=== PATIENT | female | born 1955 | race African-American/Black ===

== ENCOUNTER 2017-05-04 07:52 | Emergency (ER) | payer OTHER ==
[~2017-05-04] VITALS: Ht 165.1 cm; Wt 73.0 kg
[~2017-05-04 07:52] MED LIST: ALBU18HF2 IH; AMOX500T2; D-ME473S8; LORA-986; TYLENOL
[2017-05-04 10:15] VITALS: BP 120/86
== END 2017-05-04 10:18 | disposition home or self-care (01) ==
LOC: ER 08:41
DX: R05 Cough (principal); J45.909 Unspecified asthma, uncomplicated; I10 Essential (primary) hypertension; F17.200 Nicotine dependence, unspecified, uncomplicated
CPT/HCPCS: 71020; 99284; Z7610

== ENCOUNTER 2017-07-05 03:25 | Emergency (ER) | payer OTHER ==
[~2017-07-05] VITALS: Ht 165.1 cm; Wt 68.0 kg
[2017-07-05] MEDS ORDERED: KETOROLAC 30MG/ML VIAL IV STA (03:40)
[2017-07-05] MEDS ORDERED: ONDANSETRON HCL 4MG/2ML VIAL IV STA (03:40)
[2017-07-05] MEDS ORDERED: SODIUM CHLORIDE 0.9% 1,000 ML IV ONE (03:40)
[2017-07-05 04:38] LABS: BASOPHILS % 0.6 % (0.0-2.0); EOSINOPHILS % 0.2 % (0.0-5.0); HEMATOCRIT. 46.3 % (36.0-48.0); HEMOGLOBIN. 15.6 g/dL (12.0-16.0); LYMPHOCYTES % 16.5 % (20.0-50.0); MEAN CORPUSCULAR HEMOGLOBIN 32.7 pg (28.0-32.0); MEAN CORPUSCULAR VOLUME 96.8 fL (81.0-99.0); MONOCYTES % 9.1 % (2.0-8.0); NEUTROPHILS % 73.6 % (40.0-76.0); PLATELET 302 x1000/uL (130-400); RED BLOOD CELL COUNT 4.78 mill/uL (4.2-5.4)
[2017-07-05 04:47] LABS: PROTHROMBIN TIME 10.8 sec (9.4-11.6)
[2017-07-05 05:27] LABS: CARBON DIOXIDE 29 mEq/L (21-32); CHLORIDE 105 mEq/L (98-107)
[2017-07-05] MEDS ORDERED: POTASSIUM CHLORIDE 20MEQ TABLET SR PO ONE (05:45)
[2017-07-05] MEDS ORDERED: ACETAMINOPHEN WITH CODEINE 300/30MG TABLET PO ONE (06:15)
[2017-07-05 06:46] VITALS: BP 161/98
== END 2017-07-05 07:28 | disposition home or self-care (01) ==
LOC: ER 03:32
DX: E87.6 Hypokalemia (principal); R10.33 Periumbilical pain; J45.909 Unspecified asthma, uncomplicated; I10 Essential (primary) hypertension; Z88.0 Allergy status to penicillin
CPT/HCPCS: 36415; 74176; 80048; 83690; 85025; 85610; 96361; 96374; 96375; 99285; J1885; J2405; J7030; Z7610

== ENCOUNTER 2018-09-02 22:13 | Emergency (ER) | payer OTHER ==
[~2018-09-02] VITALS: Ht 165.1 cm; Wt 70.0 kg
[~2018-09-02 22:13] MED LIST changes: +ACET-2178 PO; +ACET12.53 PO; -AMOX500T2; +AMOX500T2 PO; -D-ME473S8; +D-ME473S8 PO; +LORA-1083 PO; -LORA-986; +S350 PO; -TYLENOL
[2018-09-02] MEDS ORDERED: IPRATROPIUM BROMIDE (0.02%) 0.5MG/2.5ML NEB HHN STA (23:11)
[2018-09-02] MEDS ORDERED: METHYLPREDNISOLONE SOD SUCC 125 MG/2 ML VIAL IV STA (23:11)
[2018-09-02] MEDS ORDERED: ALBUTEROL (0.083%) 2.5MG/3ML NEB HHN STA (23:11)
[2018-09-03 00:17] LABS: BASOPHILS % 0.7 % (0.0-2.0); EOSINOPHILS % 2.4 % (0.0-5.0); HEMATOCRIT. 39.8 % (36.0-48.0); HEMOGLOBIN. 13.6 g/dL (12.0-16.0); LYMPHOCYTES % 39.9 % (20.0-50.0); MEAN CORPUSCULAR HEMOGLOBIN 33.7 pg (28.0-32.0); MEAN PLATELET VOLUME 7.1 fl (7.4-10.4); MONOCYTES % 9.9 % (2.0-8.0); NEUTROPHILS % 47.1 % (40.0-76.0); PLATELET 242 x1000/uL (130-400); RED BLOOD CELL COUNT 4.02 mill/uL (4.2-5.4); RED CELL DISTRIBUTION WIDTH 12.6 % (11.6-14.6)
[2018-09-03 00:25] LABS: CHLORIDE 105 mEq/L (98-107)
[2018-09-03] MEDS ORDERED: IBUPROFEN 600MG TABLET PO ONE (00:45)
[2018-09-03] MEDS ORDERED: POTASSIUM CHLORIDE 20MEQ TABLET SR PO ONE (02:30)
[2018-09-03 02:40] VITALS: BP 120/84
== END 2018-09-03 03:21 | disposition home or self-care (01) ==
LOC: ER 22:13
DX: J45.31 Mild persistent asthma with (acute) exacerbation (principal); E87.6 Hypokalemia; F17.210 Nicotine dependence, cigarettes, uncomplicated; I10 Essential (primary) hypertension; Z79.899 Other long term (current) drug therapy; Z79.51 Long term (current) use of inhaled steroids
CPT/HCPCS: 36415; 71045; 80053; 85025; 93005; 94644; 96374; 99285; J2930; J7611

== ENCOUNTER 2018-11-16 11:47 | Emergency (ER) | payer OTHER ==
[~2018-11-16] VITALS: Ht 165.1 cm; Wt 73.0 kg
[2018-11-16 14:45] LABS: CLARITY URINE CLOUDY (CLEAR); COLOR URINE YELLOW (YELLOW); KETONES URINE TRACE (NEGATIVE); LEUKOCYTE ESTERASE URINE 3+ (NEGATIVE); NITRITE URINE NEGATIVE (NEGATIVE); OCCULT BLOOD URINE TRACE (NEGATIVE); PROTEIN URINE NEGATIVE (NEGATIVE); SPECIFIC GRAVITY URINE 1.029 (1.005-1.030); UROBILINOGEN URINE 0.2 E.U./dL (0.2-1.0)
[2018-11-16 15:52] VITALS: BP 119/81
== END 2018-11-16 15:49 | disposition home or self-care (01) ==
LOC: ER 13:32
DX: N39.0 Urinary tract infection, site not specified (principal); A59.9 Trichomoniasis, unspecified; J45.909 Unspecified asthma, uncomplicated; Z88.0 Allergy status to penicillin; Z79.899 Other long term (current) drug therapy
CPT/HCPCS: 99283

== ENCOUNTER 2019-02-21 11:18 | Emergency (ER) | payer OTHER ==
[~2019-02-21] VITALS: Ht 165.1 cm; Wt 72.0 kg
[2019-02-21] MEDS ORDERED: TETANUS, DIPHTHERIA, PERTUSSIS VAC/PF 0.5ML (>7YR OLD) IM ONE (14:15)
[2019-02-21] MEDS ORDERED: HYDROCODONE/ACETAMINOPHEN 5/325MG TABLET PO ONE (14:15)
[2019-02-21] MEDS ORDERED: SILVER SULFADIAZINE 1% CREAM 25GM TOP ONE (14:15)
[2019-02-21 14:33] VITALS: BP 110/84
== END 2019-02-21 14:47 | disposition home or self-care (01) ==
LOC: ER 11:18
DX: T23.021A Burn of unspecified degree of single right finger (nail) except thumb, initial encounter (principal); T31.0 Burns involving less than 10% of body surface; X19.XXXA Contact with other heat and hot substances, initial encounter; Y93.89 Activity, other specified; Y92.89 Other specified places as the place of occurrence of the external cause; Z88.0 Allergy status to penicillin; Z23 Encounter for immunization
CPT/HCPCS: 16020; 90471; 90715; 99284

== ENCOUNTER 2019-03-04 14:14 | Emergency (ER) | payer OTHER ==
[~2019-03-04] VITALS: Ht 162.6 cm; Wt 69.0 kg
[2019-03-04] MEDS ORDERED: HYDROCODONE/ACETAMINOPHEN 5/325MG TABLET PO ONE (16:15)
[2019-03-04] MEDS ORDERED: BACITRACIN ZINC OINT UDPKT TOP ONE (16:15)
[2019-03-04 16:29] VITALS: BP 109/78
== END 2019-03-04 16:38 | disposition home or self-care (01) ==
LOC: ER 14:14
DX: T23.021D Burn of unspecified degree of single right finger (nail) except thumb, subsequent encounter (principal); T31.0 Burns involving less than 10% of body surface; X58.XXXD Exposure to other specified factors, subsequent encounter; Z79.899 Other long term (current) drug therapy; Z88.0 Allergy status to penicillin
CPT/HCPCS: 99283

== ENCOUNTER 2019-05-20 08:03 | Emergency (ER) | payer OTHER ==
[~2019-05-20] VITALS: Ht 165.1 cm; Wt 71.0 kg
[~2019-05-20 08:03] MED LIST changes: -LORA-1083 PO; +LORA-1118 PO
[2019-05-20] MEDS ORDERED: KETOROLAC 15MG/ML VIAL IV ONE (08:45)
[2019-05-20] MEDS ORDERED: ALBUTEROL (0.083%) 2.5MG/3ML NEB HHN ONE (08:45)
[2019-05-20] MEDS ORDERED: PREDNISONE 20MG TABLET PO ONE (09:00)
[2019-05-20 09:21] LABS: BASOPHILS % 1.1 % (0.0-2.0); EOSINOPHILS % 0.9 % (0.0-5.0); HEMATOCRIT. 40.5 % (36.0-48.0); HEMOGLOBIN. 13.7 g/dL (12.0-16.0); LYMPHOCYTES % 24.3 % (20.0-50.0); MEAN CORPUSCULAR HEMOGLOBIN 33.8 pg (28.0-32.0); MEAN CORPUSCULAR VOLUME 99.7 fL (81.0-99.0); MEAN PLATELET VOLUME 7.3 fl (7.4-10.4); MONOCYTES % 8.7 % (2.0-8.0); PLATELET 245 x1000/uL (130-400); RED BLOOD CELL COUNT 4.06 mill/uL (4.2-5.4); RED CELL DISTRIBUTION WIDTH 12.7 % (11.6-14.6)
[2019-05-20 09:27] LABS: CHLORIDE 110 mEq/L (98-107)
[2019-05-20 09:44] LABS: CLARITY URINE CLEAR (CLEAR); COLOR URINE YELLOW (YELLOW); KETONES URINE NEGATIVE (NEGATIVE); LEUKOCYTE ESTERASE URINE NEGATIVE (NEGATIVE); NITRITE URINE NEGATIVE (NEGATIVE); OCCULT BLOOD URINE NEGATIVE (NEGATIVE); PROTEIN URINE NEGATIVE (NEGATIVE); UROBILINOGEN URINE 0.2 E.U./dL (0.2-1.0)
[2019-05-20 10:00] VITALS: BP 120/76
== END 2019-05-20 10:18 | disposition home or self-care (01) ==
LOC: ER 08:03
DX: R05 Cough (principal); R07.89 Other chest pain; J45.909 Unspecified asthma, uncomplicated; I10 Essential (primary) hypertension; F17.200 Nicotine dependence, unspecified, uncomplicated; Z79.899 Other long term (current) drug therapy; Z88.0 Allergy status to penicillin
CPT/HCPCS: 36415; 71045; 80048; 81003; 85025; 94640; 96374; 99284; J1885; J7512; J7611; Z7610

== ENCOUNTER 2019-06-02 08:17 | Emergency (ER) | payer OTHER ==
[~2019-06-02] VITALS: Ht 170.2 cm; Wt 72.0 kg
[2019-06-02 08:27] VITALS: BP 108/81
== END 2019-06-02 12:11 | disposition home or self-care (01) ==
LOC: ER 08:17
DX: J40 Bronchitis, not specified as acute or chronic (principal); M19.90 Unspecified osteoarthritis, unspecified site; I10 Essential (primary) hypertension; M79.10 Myalgia, unspecified site; Z88.0 Allergy status to penicillin
CPT/HCPCS: 71045; 99283

== ENCOUNTER 2019-11-18 05:04 | Emergency (ER) | payer OTHER ==
[~2019-11-18] VITALS: Ht 165.1 cm; Wt 68.0 kg
[~2019-11-18 05:04] MED LIST changes: -ACET-2178 PO; +CARI-166 PO; -S350 PO; +TOPUD PO
[2019-11-18] MEDS ORDERED: NAPROXEN 250MG TABLET PO SCH (06:45)
[2019-11-18 07:01] VITALS: BP 132/80
== END 2019-11-18 07:03 | disposition home or self-care (01) ==
LOC: ER 05:04
DX: J20.9 Acute bronchitis, unspecified (principal); J45.909 Unspecified asthma, uncomplicated; R03.0 Elevated blood-pressure reading, without diagnosis of hypertension
CPT/HCPCS: 99283

== ENCOUNTER 2021-05-11 11:16 | Emergency (ER) | payer OTHER ==
[~2021-05-11] VITALS: Ht 165.1 cm; Wt 68.0 kg
[~2021-05-11 11:16] MED LIST changes: -CARI-166 PO; +CARI350T28 PO
[2021-05-11] MEDS ORDERED: MORPHINE SULFATE 4 MG/ML CPJ (NOT FOR IM USE) IV ONE (12:00)
[2021-05-11] MEDS ORDERED: ONDANSETRON HCL 4MG/2ML INJ IV ONE (12:00)
[2021-05-11 12:33] LABS: BASOPHILS % 0.7 % (0.0-2.0); EOSINOPHILS % 0.3 % (0.0-5.0); HEMATOCRIT. 48.1 % (36.0-48.0); HEMOGLOBIN. 16.9 g/dL (12.0-16.0); LYMPHOCYTES % 16.7 % (20.0-50.0); MEAN CORPUSCULAR HEMOGLOBIN 35.7 pg (28.0-32.0); MEAN CORPUSCULAR VOLUME 101.7 fL (81.0-99.0); MEAN PLATELET VOLUME 7.4 fl (7.4-10.4); MONOCYTES % 6.2 % (2.0-8.0); NEUTROPHILS % 76.1 % (40.0-76.0); PLATELET 326 x1000/uL (130-400); RED BLOOD CELL COUNT 4.73 mill/uL (4.2-5.4); RED CELL DISTRIBUTION WIDTH 13.2 % (11.6-14.6)
[2021-05-11 12:40] LABS: CHLORIDE 109 mEq/L (98-107)
[2021-05-11] MEDS ORDERED: DICY10CA88 MT (14:41)
[2021-05-11] MEDS ORDERED: ONDA4TAB5 MT (14:41)
[2021-05-11] MEDS ORDERED: DICYCLOMINE HCL 10MG CAPSULE PO ONE (14:45)
[2021-05-11 14:59] LABS: PROTHROMBIN TIME 10.3 sec (9.6-11.0)
[2021-05-11 15:12] VITALS: BP 155/91
== END 2021-05-11 15:17 | disposition home or self-care (01) ==
LOC: ER 11:40
DX: R10.31 Right lower quadrant pain (principal); R11.2 Nausea with vomiting, unspecified; R19.7 Diarrhea, unspecified; F17.290 Nicotine dependence, other tobacco product, uncomplicated; F12.10 Cannabis abuse, uncomplicated; I10 Essential (primary) hypertension; Z88.0 Allergy status to penicillin; Z79.899 Other long term (current) drug therapy; Z98.890 Other specified postprocedural states
CPT/HCPCS: 36415; 74176; 80053; 83690; 85025; 85610; 93005; 96374; 96375; 99285; 99406; J2270; J2405

== ENCOUNTER 2021-05-12 07:34 | Emergency (ER) | payer OTHER ==
[~2021-05-12] VITALS: Ht 170.2 cm; Wt 59.0 kg
[~2021-05-12 07:34] MED LIST changes: +DICY10CA88 MT; +ONDA4TAB5 MT
[2021-05-12] MEDS ORDERED: MORPHINE SULFATE 4 MG/ML CPJ (NOT FOR IM USE) IV STA (08:01)
[2021-05-12] MEDS ORDERED: ONDANSETRON HCL 4MG/2ML INJ IV STA (08:01)
[2021-05-12] MEDS ORDERED: SODIUM CHLORIDE 0.9% 1,000 ML IV ONE (08:15)
[2021-05-12 08:29] LABS: CHLORIDE 107 mEq/L (98-107)
[2021-05-12 08:35] LABS: PROTHROMBIN TIME 10.6 sec (9.6-11.0)
[2021-05-12 08:50] LABS: CLARITY URINE CLEAR (CLEAR); COLOR URINE DARK YELLOW (YELLOW); KETONES URINE 1+ (NEGATIVE); LEUKOCYTE ESTERASE URINE NEGATIVE (NEGATIVE); NITRITE URINE NEGATIVE (NEGATIVE); OCCULT BLOOD URINE 2+ (NEGATIVE); PH URINE 6.5 (4.5-8.0); PROTEIN URINE 3+ (NEGATIVE); SPECIFIC GRAVITY URINE 1.028 (1.005-1.030); UROBILINOGEN URINE 0.2 E.U./dL (0.2-1.0)
[2021-05-12 08:53] LABS: BASOPHILS % 0.4 % (0.0-2.0); EOSINOPHILS % 0.1 % (0.0-5.0); HEMATOCRIT. 47.7 % (36.0-48.0); HEMOGLOBIN. 16.4 g/dL (12.0-16.0); LYMPHOCYTES % 10.5 % (20.0-50.0); MEAN CORPUSCULAR HEMOGLOBIN 34.8 pg (28.0-32.0); MEAN PLATELET VOLUME 7.4 fl (7.4-10.4); MONOCYTES % 8.3 % (2.0-8.0); NEUTROPHILS % 80.7 % (40.0-76.0); PLATELET 322 x1000/uL (130-400); RED BLOOD CELL COUNT 4.72 mill/uL (4.2-5.4); RED CELL DISTRIBUTION WIDTH 12.7 % (11.6-14.6)
[2021-05-12] MEDS ORDERED: ONDANSETRON HCL 4MG/2ML INJ IV ONE (10:45)
[2021-05-12] MEDS ORDERED: MORPHINE SULFATE 4 MG/ML CPJ (NOT FOR IM USE) IV ONE (10:45)
[2021-05-12 12:30] VITALS: BP 103/77
== END 2021-05-12 13:18 | disposition short-term general hospital (02) ==
LOC: ER 07:57
DX: R11.2 Nausea with vomiting, unspecified (principal); R10.2 Pelvic and perineal pain; I10 Essential (primary) hypertension; J45.909 Unspecified asthma, uncomplicated; Z87.01 Personal history of pneumonia (recurrent); F17.210 Nicotine dependence, cigarettes, uncomplicated; Z71.6 Tobacco abuse counseling; F12.90 Cannabis use, unspecified, uncomplicated
CPT/HCPCS: 36415; 74018; 80053; 81003; 83690; 84484; 85025; 85610; 93005; 96374; 96375; 96376; 99285; 99406; J2270; J2405; J7030; Z7610

== ENCOUNTER 2021-08-08 07:22 | Emergency (ER) | payer OTHER ==
[~2021-08-08] VITALS: Ht 165.1 cm; Wt 67.0 kg
[~2021-08-08 07:22] MED LIST changes: -ACET12.53 PO; +ACET12.55 PO
[2021-08-08] MEDS ORDERED: IPRATROPIUM BROMIDE (0.02%) 0.5MG/2.5ML NEB HHN STA (08:11)
[2021-08-08] MEDS ORDERED: ALBUTEROL (0.083%) 2.5MG/3ML NEB HHN STA (08:11)
[2021-08-08 08:49] LABS: BASOPHILS % 0.6 % (0.0-2.0); CHLORIDE 110 mEq/L (98-107); EOSINOPHILS % 1.6 % (0.0-5.0); HEMATOCRIT. 42.6 % (36.0-48.0); HEMOGLOBIN. 14.5 g/dL (12.0-16.0); LYMPHOCYTES % 27.5 % (20.0-50.0); MEAN CORPUSCULAR HEMOGLOBIN 34.4 pg (28.0-32.0); MEAN CORPUSCULAR VOLUME 101.4 fL (81.0-99.0); MEAN PLATELET VOLUME 7.3 fl (7.4-10.4); MONOCYTES % 10.3 % (2.0-8.0); PLATELET 252 x1000/uL (130-400); RED CELL DISTRIBUTION WIDTH 13.1 % (11.6-14.6)
[2021-08-08] MEDS ORDERED: ALBUL MT (11:13)
[2021-08-08] MEDS ORDERED: AZIT500T8 MT (11:13)
[2021-08-08] MEDS ORDERED: P50 MT (11:14)
[2021-08-08 11:28] VITALS: BP 145/91
== END 2021-08-08 11:30 | disposition home or self-care (01) ==
LOC: ER 07:22
DX: J44.1 Chronic obstructive pulmonary disease with (acute) exacerbation (principal); J45.909 Unspecified asthma, uncomplicated; I10 Essential (primary) hypertension; Z87.01 Personal history of pneumonia (recurrent); F12.10 Cannabis abuse, uncomplicated; Z79.899 Other long term (current) drug therapy; Z88.0 Allergy status to penicillin
CPT/HCPCS: 36415; 71045; 80053; 83880; 84484; 85025; 94640; 99284; Z7610

== ENCOUNTER 2022-03-12 07:34 | Emergency (ER) | payer OTHER ==
[~2022-03-12] VITALS: Ht 165.1 cm; Wt 68.0 kg
[~2022-03-12 07:34] MED LIST changes: +ALBUL MT; +AZIT500T8 MT; +P50 MT
[2022-03-12] MEDS ORDERED: ACETAMINOPHEN 325MG TABLET PO ONE (08:30)
[2022-03-12] MEDS ORDERED: HYDR-4001 MT (09:40)
[2022-03-12 09:54] VITALS: BP 157/86
== END 2022-03-12 09:57 | disposition home or self-care (01) ==
LOC: ER 08:02
DX: S86.811A Strain of other muscle(s) and tendon(s) at lower leg level, right leg, initial encounter (principal); I10 Essential (primary) hypertension; M17.0 Bilateral primary osteoarthritis of knee; W01.0XXA Fall on same level from slipping, tripping and stumbling without subsequent striking against object, initial encounter; Y93.01 Activity, walking, marching and hiking; Y92.89 Other specified places as the place of occurrence of the external cause; M25.462 Effusion, left knee; M25.461 Effusion, right knee
CPT/HCPCS: 73562; 99283

== ENCOUNTER 2022-03-18 05:34 | Emergency (ER) | payer OTHER ==
[~2022-03-18] VITALS: Ht 165.1 cm; Wt 68.0 kg
[~2022-03-18 05:34] MED LIST changes: +HYDR-4001 MT
[2022-03-18] MEDS ORDERED: ACETAMINOPHEN 325MG TABLET PO ONE (06:00)
[2022-03-18] MEDS ORDERED: IBUPROFEN 400MG TABLET PO ONE (06:00)
[2022-03-18 06:38] VITALS: BP 152/86
== END 2022-03-18 06:50 | disposition home or self-care (01) ==
LOC: ER 05:34
DX: M17.0 Bilateral primary osteoarthritis of knee (principal); F12.10 Cannabis abuse, uncomplicated; Z79.899 Other long term (current) drug therapy; I10 Essential (primary) hypertension; Z88.0 Allergy status to penicillin; J45.909 Unspecified asthma, uncomplicated
CPT/HCPCS: 99283

== ENCOUNTER 2022-04-23 14:48 | Emergency (ER) | payer OTHER ==
[~2022-04-23] VITALS: Ht 165.1 cm; Wt 67.0 kg
[2022-04-23 15:02] VITALS: BP 103/49
[2022-04-23] MEDS ORDERED: LIDOCAINE 5% PATCH TOP SCH (16:45)
[2022-04-23] MEDS ORDERED: HYDROCODONE/ACETAMINOPHEN 5/325MG TABLET PO ONE (16:45)
[2022-04-23] MEDS ORDERED: LIDO1ADH23 TP (17:39)
[2022-04-23] MEDS ORDERED: ACET-2708 MT (17:39)
== END 2022-04-23 18:13 | disposition home or self-care (01) ==
LOC: ER 14:48
DX: R07.81 Pleurodynia (principal)
CPT/HCPCS: 71101; 99283

== ENCOUNTER 2022-08-18 21:14 | Emergency (ER) | payer OTHER ==
[~2022-08-18] VITALS: Ht 165.1 cm; Wt 78.0 kg
[~2022-08-18 21:14] MED LIST changes: +ACET-2708 MT; +LIDO1ADH23 TP
[2022-08-19] MEDS: HYDROCODONE/ACETAMINOPHEN 5/325MG TABLET PO ONE (01:30)
[2022-08-19] MEDS ORDERED: HYDR-4001 MT (01:32)
[2022-08-19 01:51] VITALS: BP 127/78
== END 2022-08-19 01:54 | disposition home or self-care (01) ==
LOC: ER 21:14
DX: M25.562 Pain in left knee (principal); M25.561 Pain in right knee; J45.909 Unspecified asthma, uncomplicated; I10 Essential (primary) hypertension; Z87.01 Personal history of pneumonia (recurrent); F12.10 Cannabis abuse, uncomplicated
CPT/HCPCS: 99283

== ENCOUNTER 2022-09-08 07:53 | Emergency (ER) | payer OTHER ==
[~2022-09-08] VITALS: Ht 165.1 cm; Wt 77.0 kg
[2022-09-08 08:12] VITALS: BP 106/77
[2022-09-08] MEDS ORDERED: ACETAMINOPHEN 325MG TABLET PO ONE (08:30)
[2022-09-08] MEDS ORDERED: LIDOCAINE HCL 1% 20ML VIAL (Pyxis) INJ INFIL ONE (08:30)
[2022-09-08] MEDS ORDERED: LIDOCAINE HCL 1% 10 MG/ML 10ML VIAL INJ NR (09:30)
[2022-09-08] MEDS ORDERED: HYDROCODONE/ACETAMINOPHEN 5/325MG TABLET PO ONE (09:45)
[2022-09-08] MEDS ORDERED: HYDR-4001 MT (10:27)
== END 2022-09-08 11:20 | disposition home or self-care (01) ==
LOC: ER 07:53
DX: M25.461 Effusion, right knee (principal); F12.10 Cannabis abuse, uncomplicated; I10 Essential (primary) hypertension; Z13.9 Encounter for screening, unspecified; Z88.0 Allergy status to penicillin; Z79.899 Other long term (current) drug therapy; J45.909 Unspecified asthma, uncomplicated; Z98.890 Other specified postprocedural states
CPT/HCPCS: 20610; 73560; 87070; 87205; 89050; 89060; 99285; J3490

== ENCOUNTER 2022-09-29 07:36 | Emergency (ER) | payer OTHER ==
[~2022-09-29] VITALS: Ht 160 cm; Wt 68.0 kg
[2022-09-29 08:06] VITALS: BP 111/78
== END 2022-09-29 09:10 | disposition home or self-care (01) ==
LOC: ER 07:36
DX: M25.562 Pain in left knee (principal); M25.561 Pain in right knee; M79.89 Other specified soft tissue disorders
CPT/HCPCS: 99281

== ENCOUNTER 2023-03-11 05:00 | Emergency (ER) | payer OTHER ==
[~2023-03-11] VITALS: Ht 167.6 cm; Wt 61.0 kg
[2023-03-11] MEDS ORDERED: TRAMADOL HCL/ACETAMINOPHEN 37.5/325MG TABLET PO ONE (06:00)
[2023-03-11] MEDS ORDERED: ONDANSETRON 4MG ODT PO ONE (06:00)
[2023-03-11 06:38] LABS: BASOPHILS % 0.4 % (0.0-2.0); EOSINOPHILS % 0.5 % (0.0-5.0); HEMATOCRIT. 41.9 % (36.0-48.0); HEMOGLOBIN. 14.5 g/dL (12.0-16.0); LYMPHOCYTES % 16.8 % (20.0-50.0); MEAN CORPUSCULAR HEMOGLOBIN 35.9 pg (28.0-32.0); MEAN CORPUSCULAR VOLUME 103.8 fL (81.0-99.0); MONOCYTES % 14.1 % (2.0-8.0); NEUTROPHILS % 68.2 % (40.0-76.0); PLATELET 223 x1000/uL (130-400); RED BLOOD CELL COUNT 4.03 mill/uL (4.2-5.4); RED CELL DISTRIBUTION WIDTH 12.9 % (11.6-14.6)
[2023-03-11 06:42] LABS: PROTHROMBIN TIME 10.6 sec (9.6-11.0)
[2023-03-11] MEDS ORDERED: KETOROLAC 30MG/ML VIAL IV ONE (06:45)
[2023-03-11 06:47] LABS: CHLORIDE 109 mEq/L (98-107)
[2023-03-11] MEDS ORDERED: CIPR500T5 MT (09:08)
[2023-03-11] MEDS ORDERED: MELO-104 MT (09:08)
[2023-03-11 09:31] VITALS: BP 148/88
== END 2023-03-11 09:28 | disposition home or self-care (01) ==
LOC: ER 05:00
DX: A09 Infectious gastroenteritis and colitis, unspecified (principal); E87.6 Hypokalemia; M17.0 Bilateral primary osteoarthritis of knee; I10 Essential (primary) hypertension; J45.909 Unspecified asthma, uncomplicated; Z88.0 Allergy status to penicillin; Z79.899 Other long term (current) drug therapy; Z98.890 Other specified postprocedural states
CPT/HCPCS: 36415; 76705; 80053; 83690; 85025; 85610; 96374; 99285; J1885; Q0162; Z7610

== ENCOUNTER 2023-03-29 19:15 | Emergency (ER) | payer OTHER ==
[~2023-03-29] VITALS: Ht 165.1 cm; Wt 68.0 kg
[~2023-03-29 19:15] MED LIST changes: +ALBU2SYR23 MT; -ALBUL MT; +CIPR500T5 MT; +MELO-104 MT
[2023-03-29] MEDS ORDERED: KETOROLAC 60MG/2ML VIAL IM ONE (20:45)
[2023-03-29 21:08] VITALS: BP 151/91
[2023-03-29] MEDS ORDERED: IBUP-2029 MT (21:54)
== END 2023-03-29 23:00 | disposition home or self-care (01) ==
LOC: ER 19:15
DX: M25.531 Pain in right wrist (principal); I10 Essential (primary) hypertension; Z88.0 Allergy status to penicillin
CPT/HCPCS: 73130; 96372; 99283; J1885; Z7610

== ENCOUNTER 2023-04-02 14:21 | Emergency (ER) | payer OTHER ==
[~2023-04-02] VITALS: Ht 165.1 cm; Wt 68.0 kg
[~2023-04-02 14:21] MED LIST changes: +IBUP-2029 MT
[2023-04-02 14:32] VITALS: BP 144/125
[2023-04-02] MEDS ORDERED: IBUP-2029 MT (18:22)
[2023-04-02] MEDS ORDERED: IBUPROFEN 600MG TABLET PO ONE (18:30)
== END 2023-04-02 18:46 | disposition home or self-care (01) ==
LOC: ER 16:00
DX: S60.211A Contusion of right wrist, initial encounter (principal); M19.031 Primary osteoarthritis, right wrist; I10 Essential (primary) hypertension; Z88.0 Allergy status to penicillin; X58.XXXA Exposure to other specified factors, initial encounter; Y93.89 Activity, other specified; Y92.89 Other specified places as the place of occurrence of the external cause; Y99.8 Other external cause status
CPT/HCPCS: 99282

== ENCOUNTER 2023-04-14 12:44 | Emergency (ER) | payer OTHER ==
[~2023-04-14] VITALS: Ht 167.6 cm; Wt 59.0 kg
[2023-04-14 12:51] VITALS: BP 128/83
[2023-04-14] MEDS ORDERED: AMLO2.5T45 MT (15:24)
[2023-04-14] MEDS ORDERED: AMLODIPINE 2.5MG TABLET PO ONE (15:30)
== END 2023-04-14 15:54 | disposition home or self-care (01) ==
LOC: ER 12:52
DX: Z76.0 Encounter for issue of repeat prescription (principal); Z88.0 Allergy status to penicillin; Z79.899 Other long term (current) drug therapy
CPT/HCPCS: 99281

== ENCOUNTER 2023-09-25 06:35 | Emergency (ER) | payer OTHER ==
[~2023-09-25] VITALS: Ht 165.1 cm; Wt 54.0 kg
[~2023-09-25 06:35] MED LIST changes: +AMLO2.5T45 MT; +DICY-18 MT; -DICY10CA88 MT
[2023-09-25 06:47] VITALS: BP 159/90; RESP 16; TEMP 98.1; O2SAT 99
[2023-09-25 07:14] VITALS: PULSE 82
[2023-09-25 08:07] LABS: CLARITY URINE CLEAR (CLEAR); COLOR URINE YELLOW (YELLOW); GLUCOSE URINE NEGATIVE (NEGATIVE); KETONES URINE TRACE (NEGATIVE); LEUKOCYTE ESTERASE URINE NEGATIVE (NEGATIVE); NITRITE URINE NEGATIVE (NEGATIVE); OCCULT BLOOD URINE 2+ (NEGATIVE); PROTEIN URINE NEGATIVE (NEGATIVE); SPECIFIC GRAVITY URINE 1.012 (1.005-1.030); UROBILINOGEN URINE 0.2 E.U./dL (0.2-1.0)
[2023-09-25 08:28] LABS: SQUAMOUS EPITHELIAL CELL URINE FEW /lpf (RARE/1+)
[2023-09-25 08:29] LABS: BACTERIA URINE NONE SEEN; RBC URINE 0-2 /hpf (0-2); WBC URINE 0-2 /hpf (0-2); YEAST URINE NONE SEEN
[2023-09-25] MEDS ORDERED: MAGNESIUM/ALUMINUM HYDROXIDE/SIMETHICONE 30ML UDC PO ONE (10:00)
[2023-09-25] MEDS ORDERED: FAMOTIDINE 20MG TABLET PO ONE (10:00)
[2023-09-25] MEDS ORDERED: ONDANSETRON 4MG ODT PO ONE (10:00)
[2023-09-25 10:08] LABS: BASOPHILS % 0.8 % (0.0-2.0); DIFFERENTIAL COMMENT 0; EOSINOPHILS % 0.5 % (0.0-5.0); HEMATOCRIT. 43.6 % (36.0-48.0); HEMOGLOBIN. 14.8 g/dL (12.0-16.0); LYMPHOCYTES % 24.3 % (20.0-50.0); MEAN CORPUSCULAR HGB CONC 33.9 g/dL (31.0-37.0); MEAN CORPUSCULAR VOLUME 103.3 fL (81.0-99.0); NEUTROPHILS % 65.4 % (40.0-76.0); PLATELET 208 x1000/uL (130-400); RED BLOOD CELL COUNT 4.22 mill/uL (4.2-5.4); RED CELL DISTRIBUTION WIDTH 13.9 % (11.6-14.6); WHITE BLOOD COUNT 5.1 x1000/uL (4.5-11.0)
[2023-09-25 10:20] LABS: CHLORIDE 108 mEq/L (98-107); INDEX HEMOLYSI 1 (1-3); INDEX ICTERIC 1 (1-4); INDEX LIPEMIC 1 (1-3); POTASSIUM 3.4 mEq/L (3.5-5.1); SODIUM 138 mEq/L (136-145)
[2023-09-25 10:31] LABS: ALANINE AMINOTRANSFERASE 25 IU/L (13-61); ALBUMIN 3.6 g/dL (3.4-5.0); ASPARTATE AMINOTRANSFERASE 19 IU/L (15-37); CALCIUM 8.5 mg/dL (8.5-10.1); CARBON DIOXIDE 25 mEq/L (21-32); CREATININE 0.5 mg/dL (0.6-1.3); GLUCOSE 83 mg/dL (70-105); PROTEIN TOTAL 6.9 g/dL (6.0-8.3); TROPONIN I HIGH SENSITIVITY 8 ng/L (<54); UREA NITROGEN BLOOD 11 mg/dL (7-21)
[2023-09-25] MEDS ORDERED: FAMO-135 MT (11:24)
== END 2023-09-25 11:54 | disposition home or self-care (01) ==
LOC: ER 06:35
DX: K29.70 Gastritis, unspecified, without bleeding (principal); I10 Essential (primary) hypertension; Z79.899 Other long term (current) drug therapy; Z88.0 Allergy status to penicillin; Z88.8 Allergy status to other drugs, medicaments and biological substances
CPT/HCPCS: 99284; 80053; 81003; 83690; 85025; 84484; 36415; 93005; Q0162

== ENCOUNTER 2023-11-10 12:26 | Emergency (ER) | payer OTHER ==
[~2023-11-10] VITALS: Ht 162.6 cm; Wt 68.0 kg
[~2023-11-10 12:26] MED LIST changes: +FAMO-135 MT
[2023-11-10 12:39] VITALS: BP 125/86; PULSE 91; RESP 18; TEMP 98.6; O2SAT 97
[2023-11-10] MEDS ORDERED: ACETAMINOPHEN 325MG TABLET PO STA (13:22)
[2023-11-10] MEDS ORDERED: CYCL10TA21 PO (15:58)
[2023-11-10] MEDS ORDERED: NAPR-681 MT (15:59)
== END 2023-11-10 16:16 | disposition home or self-care (01) ==
LOC: ER 12:26
DX: S13.4XXA Sprain of ligaments of cervical spine, initial encounter (principal); M25.512 Pain in left shoulder; M54.50 Low back pain, unspecified; I10 Essential (primary) hypertension; Z88.0 Allergy status to penicillin; Z98.890 Other specified postprocedural states; Z79.899 Other long term (current) drug therapy; V43.52XA Car driver injured in collision with other type car in traffic accident, initial encounter; Y93.89 Activity, other specified; Y92.89 Other specified places as the place of occurrence of the external cause; Y99.8 Other external cause status
CPT/HCPCS: 71045; 99284

== ENCOUNTER 2024-01-05 01:48 | Emergency (ER) | payer OTHER ==
[~2024-01-05] VITALS: Ht 160 cm; Wt 53.0 kg
[~2024-01-05 01:48] MED LIST changes: +CYCL10TA21 PO; +NAPR-681 MT
[2024-01-05 01:51] VITALS: O2SAT 98
[2024-01-05 02:16] LABS: HEMATOCRIT. 44.7 % (36.0-48.0); HEMOGLOBIN. 15.2 g/dL (12.0-16.0); MEAN CORPUSCULAR HEMOGLOBIN 35.3 pg (28.0-32.0); MEAN CORPUSCULAR HGB CONC 34.1 g/dL (31.0-37.0); MEAN CORPUSCULAR VOLUME 103.6 fL (81.0-99.0); MEAN PLATELET VOLUME 7.1 fl (7.4-10.4); PLATELET 202 x1000/uL (130-400); RED BLOOD CELL COUNT 4.31 mill/uL (4.2-5.4); WHITE BLOOD COUNT 3.7 x1000/uL (4.5-11.0)
[2024-01-05 02:33] LABS: DIFFERENTIAL COMMENT 1
[2024-01-05 02:34] LABS: ALANINE AMINOTRANSFERASE 27 IU/L (10-49); ALBUMIN 4.2 g/dL (3.2-4.8); ASPARTATE AMINOTRANSFERASE 31 IU/L (<34); BILIRUBIN TOTAL 0.7 mg/dL (0.1-1.0); CALCIUM 9.1 mg/dL (8.7-10.4); CARBON DIOXIDE 28 mEq/L (21-32); CHLORIDE 105 mEq/L (98-107); CREATININE 0.7 mg/dL (0.6-1.0); GLUCOSE 107 mg/dL (70-105); PROTEIN TOTAL 6.8 g/dL (6.0-8.3); SODIUM 142 mEq/L (136-145); TROPONIN I HIGH SENSITIVITY 12 ng/L (3.0-34); UREA NITROGEN BLOOD 13 mg/dL (9-23)
[2024-01-05 02:37] LABS: ETHANOL BLOOD < 10 mg/dL (<10)
[2024-01-05 02:56] LABS: PLATELET ESTIMATE NORMAL
[2024-01-05] MEDS: POTASSIUM CHLORIDE 20MEQ/PACKET PO NR (05:00)
[2024-01-05] MEDS: ACETAMINOPHEN 325MG TABLET PO NR (05:00)
[2024-01-05 05:22] LABS: TROPONIN I HIGH SENSITIVITY 9 ng/L (3.0-34)
[2024-01-05 07:52] LABS: CLARITY URINE CLEAR (CLEAR); COLOR URINE YELLOW (YELLOW); GLUCOSE URINE NEGATIVE (NEGATIVE); KETONES URINE TRACE (NEGATIVE); LEUKOCYTE ESTERASE URINE NEGATIVE (NEGATIVE); NITRITE URINE NEGATIVE (NEGATIVE); OCCULT BLOOD URINE 1+ (NEGATIVE); PH URINE 6.5 (4.5-8.0); PROTEIN URINE NEGATIVE (NEGATIVE); SPECIFIC GRAVITY URINE 1.023 (1.005-1.030)
[2024-01-05 07:55] VITALS: BP 134/85; PULSE 87; RESP 16; TEMP 98
[2024-01-05 08:07] LABS: WBC URINE 0-2 /hpf (0-2)
[2024-01-05 08:08] LABS: BACTERIA URINE TRACE; SQUAMOUS EPITHELIAL CELL URINE 2+ /lpf (RARE/1+)
[2024-01-05 08:19] LABS: *AMPHETAMINES SCREEN URINE NEGATIVE (NEGATIVE); *BARBITURATES SCREEN URINE NEGATIVE (NEGATIVE); *BENZODIAZEPINES SCREEN URINE PRESUMPTIVE POSITIVE (NEGATIVE); *COCAINE SCREEN URINE NEGATIVE (NEGATIVE); CANNABINOID URINE SCREEN PRESUMPTIVE POSITIVE (NEGATIVE); ECSTASY MDMA SCREEN URINE NEGATIVE (NEGATIVE); METHADONE URINE SCREEN Pos (NEGATIVE); OPIATES URINE SCREEN PRESUMPTIVE POSITIVE (NEGATIVE); PHENCYCLIDINE URINE SCREEN NEGATIVE (NEGATIVE)
== END 2024-01-05 08:35 | disposition home or self-care (01) ==
LOC: ER 01:48 → EDBEDREQ 08:05 → ER 08:35 → CANBEDREQ 01-07 09:11
DX: R55 Syncope and collapse (principal); E87.6 Hypokalemia; D72.819 Decreased white blood cell count, unspecified; I10 Essential (primary) hypertension; J45.909 Unspecified asthma, uncomplicated; Z88.0 Allergy status to penicillin; Z88.6 Allergy status to analgesic agent; Z79.899 Other long term (current) drug therapy
CPT/HCPCS: 36415; 71045; 80053; 80305; 80320; 81003; 83880; 84484; 85025; 93005; 99285; G0480

== ENCOUNTER 2024-01-09 14:22 | Emergency (ER) | payer OTHER ==
[~2024-01-09] VITALS: Ht 165.1 cm; Wt 56.6 kg
[2024-01-09 14:47] VITALS: O2SAT 100
[2024-01-09 15:20] LABS: CLARITY URINE CLEAR (CLEAR); COLOR URINE DARK YELLOW (YELLOW); GLUCOSE URINE NEGATIVE (NEGATIVE); KETONES URINE 2+ (NEGATIVE); LEUKOCYTE ESTERASE URINE NEGATIVE (NEGATIVE); NITRITE URINE NEGATIVE (NEGATIVE); OCCULT BLOOD URINE 2+ (NEGATIVE); PH URINE 6.5 (4.5-8.0); PROTEIN URINE 1+ (NEGATIVE); SPECIFIC GRAVITY URINE 1.022 (1.005-1.030)
[2024-01-09 15:45] LABS: BASOPHILS % 0.7 % (0.0-2.0); DIFFERENTIAL COMMENT 0; EOSINOPHILS % 0.2 % (0.0-5.0); HEMATOCRIT. 45.5 % (36.0-48.0); HEMOGLOBIN. 15.5 g/dL (12.0-16.0); LYMPHOCYTES % 17.3 % (20.0-50.0); MEAN CORPUSCULAR HEMOGLOBIN 36.3 pg (28.0-32.0); MEAN CORPUSCULAR HGB CONC 34.1 g/dL (31.0-37.0); MEAN CORPUSCULAR VOLUME 106.4 fL (81.0-99.0); MEAN PLATELET VOLUME 7.6 fl (7.4-10.4); NEUTROPHILS % 71.8 % (40.0-76.0); PLATELET 291 x1000/uL (130-400); RED BLOOD CELL COUNT 4.27 mill/uL (4.2-5.4); RED CELL DISTRIBUTION WIDTH 12.8 % (11.6-14.6); WHITE BLOOD COUNT 5.5 x1000/uL (4.5-11.0)
[2024-01-09 15:46] LABS: BACTERIA URINE 2+; SQUAMOUS EPITHELIAL CELL URINE 1+ /lpf (RARE/1+); WBC URINE 0-2 /hpf (0-2)
[2024-01-09 15:47] LABS: YEAST URINE RARE
[2024-01-09 15:58] LABS: ALANINE AMINOTRANSFERASE 23 IU/L (10-49); ALBUMIN 4.9 g/dL (3.2-4.8); ASPARTATE AMINOTRANSFERASE 28 IU/L (<34); BILIRUBIN TOTAL 1.1 mg/dL (0.1-1.0); CALCIUM 9.6 mg/dL (8.7-10.4); CARBON DIOXIDE 25 mEq/L (21-32); CHLORIDE 105 mEq/L (98-107); CREATININE 0.7 mg/dL (0.6-1.0); GLUCOSE 114 mg/dL (70-105); POTASSIUM 3.6 mEq/L (3.5-5.1); PROTEIN TOTAL 7.7 g/dL (6.0-8.3); SODIUM 138 mEq/L (136-145); TROPONIN I HIGH SENSITIVITY 7 ng/L (3.0-34); UREA NITROGEN BLOOD 7 mg/dL (9-23)
[2024-01-09] MEDS: HYDRALAZINE HCL 25MG TABLET PO NR (18:06)
[2024-01-09] MEDS: ACETAMINOPHEN 500MG TABLET PO ONE (18:21)
[2024-01-09 18:50] VITALS: BP 160/85; PULSE 80; RESP 16; TEMP 98.7
== END 2024-01-09 18:51 | disposition home or self-care (01) ==
LOC: ER 14:22
DX: I10 Essential (primary) hypertension (principal); J45.909 Unspecified asthma, uncomplicated; Z88.0 Allergy status to penicillin; Z79.899 Other long term (current) drug therapy; Z88.6 Allergy status to analgesic agent
CPT/HCPCS: 80053; 81003; 85025; 84484; 36415; 71045; 93005; 99285; Z7610

== ENCOUNTER 2024-01-14 19:37 | Emergency (ER) | payer OTHER ==
[~2024-01-14] VITALS: Ht 170.2 cm; Wt 62.0 kg
[2024-01-14 19:44] VITALS: O2SAT 98
[2024-01-14] MEDS: SODIUM CHLORIDE 0.9% 1,000 ML IV ONE ×2 (20:21→21:24)
[2024-01-14 20:32] LABS: BASOPHILS % 0.7 % (0.0-2.0); DIFFERENTIAL COMMENT 0; EOSINOPHILS % 0.5 % (0.0-5.0); HEMATOCRIT. 39.4 % (36.0-48.0); HEMOGLOBIN. 13.1 g/dL (12.0-16.0); LYMPHOCYTES % 23.1 % (20.0-50.0); MEAN CORPUSCULAR HEMOGLOBIN 35.2 pg (28.0-32.0); MEAN CORPUSCULAR HGB CONC 33.2 g/dL (31.0-37.0); MEAN CORPUSCULAR VOLUME 106.1 fL (81.0-99.0); MEAN PLATELET VOLUME 7.2 fl (7.4-10.4); MONOCYTES % 8.1 % (2.0-8.0); NEUTROPHILS % 67.6 % (40.0-76.0); PLATELET 273 x1000/uL (130-400); RED BLOOD CELL COUNT 3.71 mill/uL (4.2-5.4); RED CELL DISTRIBUTION WIDTH 12.8 % (11.6-14.6); WHITE BLOOD COUNT 4.7 x1000/uL (4.5-11.0)
[2024-01-14 21:00] LABS: ALANINE AMINOTRANSFERASE 28 IU/L (10-49); ASPARTATE AMINOTRANSFERASE 23 IU/L (<34); BILIRUBIN TOTAL 0.5 mg/dL (0.1-1.0); CALCIUM 8.8 mg/dL (8.7-10.4); CARBON DIOXIDE 21 mEq/L (21-32); CHLORIDE 110 mEq/L (98-107); GLUCOSE 182 mg/dL (70-105); POTASSIUM 3.6 mEq/L (3.5-5.1); PROTEIN TOTAL 6.3 g/dL (6.0-8.3); SODIUM 140 mEq/L (136-145); UREA NITROGEN BLOOD 25 mg/dL (9-23)
[2024-01-14 21:06] LABS: CREATININE 1.3 mg/dL (0.6-1.0)
[2024-01-14] MEDS: ACETAMINOPHEN 325MG TABLET PO STA (21:25)
[2024-01-15 02:09] VITALS: BP 98/59; PULSE 72; RESP 20; TEMP 98.1
== END 2024-01-15 02:23 | disposition short-term general hospital (02) ==
LOC: ER 19:37
DX: I95.9 Hypotension, unspecified (principal); I10 Essential (primary) hypertension; F41.9 Anxiety disorder, unspecified; J45.909 Unspecified asthma, uncomplicated; Z79.899 Other long term (current) drug therapy
CPT/HCPCS: 99285; 96360; 96361; 80053; 83605; 85025; 87040; 36415; 93005; J7030